=== PATIENT | male | born 1945 | race Two or more races ===

== ENCOUNTER → 2021-02-04 | Emergency (ER) | payer MEDICARE, MEDICAID ==
[~2021-02-04] VITALS: Ht 177.8 cm; Wt 74.0 kg
[~2021-02-04] MED LIST: AMOX1TAB61 PO; AMOXICILLIN/CLAV 500-125MG TABLET PO SCH; DIVA500T17 PO; DIVALPROEX 500 MG TAB.ER.24H PO SCH; FERR324T5 PO; FERROUS SULFATE 325 MG TABLET PO SCH; GLIP5TAB10 PO; IPRATROPIUM 0.5 MG/2.5 ML INHA NPPB SCH; LEVO88TA4 PO; LEVOTHYROXINE 88 MCG TABLET PO SCH; METF500T17 PO; NITR100C PO; NITROFURANTOIN (MACROBID) 100 MG CAPSULE PO SCH; NITROFURANTOIN 50 MG CAPSULE PO SCH; OMEP-110 PO; OMEPRAZOLE 20 MG CAPSULE.DR PO SCH; RISP0.5T62 PO; RISPERIDONE 0.5 MG TABLET PO SCH; SERT-331 PO; SERTRALINE 50MG TABLET PO SCH; TAMS-11 PO; TAMSULOSIN 0.4 MG CAP.ER.24H ONE; TAMSULOSIN 0.4 MG CAP.ER.24H PO SCH; TIOT18CA INH; metFORMIN 500 MG TABLET PO SCH
--- NOTE | 2021-02-04 20:34 | NUR ---
THIS IS A 75M BIB EMS FROM [facility] FOR EVAL. PER EMS REPORT PT BECAME AGGRESSIVE THIS AM AND WAS SENT TO [facility] FOR EVAL. PT RETURNED TO [facility] AND THREW HIS DINNER TRAY AND BECAME AGGRESSIVE WITH GLOBAL RISK MANAGEMENT DIRECTOR, PER TEMPLATE CUTTER JOSE PT TRANSFERED AT REQUEST OF PRIMARY CARE PROVIDER FOR FURTHER EVAL. PT ARRIVES CALM COOPERATIVE NADN, NO COMPLAINTS AT THIS TIME
--- NOTE | 2021-02-04 20:45 | NUR ---
SUGAR TO BEDSIDE FOR EVAL AND POC
[2021-02-04 21:29] LABS: BASOPHILS % (AUTO) 0 % (0-1); EOSINOPHILS % (AUTO) 3 % (1-7); LYMPHOCYTES % (AUTO) 17 % (22-44); MEAN CORPUSCULAR HEMOGLOBIN 29.6 pg (27.5-34.5); MEAN CORPUSCULAR HGB CONC 34.1 g/dL (33.2-36.2); MEAN PLATELET VOLUME 6.7 fL (7.4-10.4); MONOCYTES % (AUTO) 13 % (2-9); NEUTROPHILS % (AUTO) 67 % (42-75); PLATELET COUNT 322 x10^3/uL (130-400); RED BLOOD COUNT 4.62 x10^6/uL (4.38-5.82); RED CELL DISTRIBUTION WIDTH 17.7 % (9.4-14.8)
[2021-02-04 21:38] LABS: ALBUMIN 3.1 g/dL (3.4-5.0); ANION GAP 5 mmol/L (5-15); CALCIUM 8.6 mg/dL (8.5-10.1); CHLORIDE 101 mmol/L (98-107)
[2021-02-04 21:40] LABS: SALICYLATE LEVEL < 1.7 mg/dL (2.8-20.0)
[2021-02-04 21:49] LABS: ALANINE AMINOTRANSFERASE 14 U/L (12-78); ALKALINE PHOSPHATASE 37 U/L (45-117); BILIRUBIN,TOTAL 0.2 mg/dL (0.2-1.0); CREATININE 0.75 mg/dL (0.7-1.3); TOTAL PROTEIN 6.9 g/dL (6.4-8.2)
--- NOTE | 2021-02-04 22:37 | NUR ---
PT RESTING ON GURNEY NADN RESP EVEN AND UNLABORED NO NEEDS AT THIS TIME PT AWARE OF NEED FOR URINE SAMPLE
--- NOTE | 2021-02-05 | NUR ---
PT TO CT
[2021-02-05 00:47] LABS: MICROSCOPIC INDICATED
[2021-02-05 00:51] LABS: AMPHETAMINE SCREEN, URINE Negative (Negative); BARBITURATE SCREEN, URINE Negative (Negative); BENZODIAZEPINE SCREEN, URINE Negative (Negative); CANNABINOID SCREEN, URINE Negative (Negative); COCAINE SCREEN, URINE Negative (Negative); METHADONE SCREEN, URINE Negative (Negative); OPIATE SCREEN, URINE Negative (Negative)
--- NOTE | 2021-02-05 01:11 | NUR ---
REPORT RECEIVED FROM PRIOR RN. PT RESTING ON HOSPITAL BED RESP EVEN UNLABORED, NADN, SIDERAILS UP X2, AND CALL LIGHT WITHIN REACH.
--- NOTE | 2021-02-05 01:32 | NUR ---
CALLED [facility] TO LET THEM KNOW THIS PT WHICH IS THEIRS IS MEDICALLY CLEARED AND IS IN NEED TO RETURN TO THE FACILITY SINCE HE HAS DEMENTIA. PARRISH RN, STATED TO THIS NURSE THAT THEY ARE NOT ALLOWED TO TAKE HIM BACK. WHEN ASKED WHY, THE RN SAID THAT IT IS BECAUSE HE HAS BEHAVIORAL PROBLEMS. WHEN ASKED IF THIS WAS THE INCIDENT WHERE THE PT THREW HIS DINNER TRAY ON THE FLOOR THE RN SAID YES. AND THAT HE'S COMBATIVE. THE PT HAS A DIAGNOSIS OF DEMENTIA AND IS THE REASON HE IS AT THIS FACILITY. WICKER WORKER NOTIFIED OF [facility]'S REFUSAL TO TAKE THE PT BACK. AND PA NOTIFIED FOR FURTHER INSTRUCTION ON PTS DISPOSITION.
--- NOTE | 2021-02-05 03:11 | NUR ---
PT SLEEPING, NO ACUTE DISTRESS AT THIS TIME. PT ON CR MONITOR. REMAINS ON ER OBSERVATION STATUS UNTIL MORNING WHEN THE AGRICULTURAL ENGINEERING TECHNICIANS ARRIVES TO ASSES THE DISPOSITION OF THE PTS STATUS, [facility] HAS REFUSED TO TAKE THIS PT BACK TO THEIR FACILITY WHERE THE PT WAS ADMITTED FOR DEMENTIA, AND MEMORY CARE.
--- NOTE | 2021-02-05 03:37 | NUR ---
TASK RN: PT RESTING ON MINNIE MIJARES, RESP EVEN UNLABORED, NO NEEDS AT THIS TIME.
--- NOTE | 2021-02-05 05:17 | NUR ---
PT RESTING COMFORTABLY IN BED. PT REMAINS ON CR MONITOR, AND IN NO ACUTE DISTRESS.
--- NOTE | 2021-02-05 05:37 | NUR ---
PT AWAKE AND CALM, AND CONVERSING WITH RN. PT ASKED FOR SOME JUICE BUT NOT COLD, WARM, AND PROVIDED WITH CRANBERRY JUICE. PTS LINEN CHANGED, AND PT DIAPER CHANGED WELL. PT CLEANED UP, WITH FRESH LINEN, AND SAYS HE FEELS BETTER. NO ACUTE DISTRESS AT THIS TIME, PT REMAINS RESTING IN BED ON CR MONITOR. MD ADVISED OF LOW BP WHILE PT SLEEPS.
--- NOTE | 2021-02-05 07:12 | NUR ---
report from amirah mcdermott. called [facility] twice to try to do med rec. as
--- NOTE | 2021-02-05 07:41 | NUR ---
called mult times to speak w nurse. pt [facility] 09/22 est [phone] or [phone]. as
--- NOTE | 2021-02-05 08:07 | NUR ---
PER RN AT [facility], PT TO GO TO BEHAVIORAL HEALTH. NOTIFIED. TO ORDER HOME MEDS.
--- NOTE | 2021-02-05 08:09 | NUR ---
CALLED FOR HOSPITAL BED.
--- NOTE | 2021-02-05 09:24 | NUR ---
PT MOVED TO HOSPITAL BED.
--- NOTE | 2021-02-05 09:34 | NUR ---
REQUESTED MEDS FROM PHARM.
--- NOTE | 2021-02-05 09:34 | NUR ---
DAUGHTER ALFONZO NINO: [phone]. UPDATED.
--- NOTE | 2021-02-05 10:20 | NUR ---
CALLED PHARMACY AGAIN TO REQUEST MEDS.
[2021-02-05 10:59] VITALS: BP 93/45
--- NOTE | 2021-02-05 10:59 | NUR ---
repositioned. meds per mar. reoriented. as
--- NOTE | 2021-02-05 11:59 | NUR ---
Pt needs rapid covid test for [facility]
--- NOTE | 2021-02-05 12:47 | NUR ---
BREAK RN: PT UPRIGHT ON HOSPITAL BED, CALM & COOPERATIVE, RESPONDS APPROP TO STAFF, NAD, MEAL TRAY GIVEN- NO OTHER NEEDS AT THIS TIME.
--- NOTE | 2021-02-05 13:30 | NUR ---
REPORT TO FRANKIE KAMINSKI ON U.
== END | disposition admitted as inpatient to this hospital (09) ==
LOC: ED 23:50 → INTOOBSV 02-05 01:52 → UNDOADMOB 02-05 01:52 → EDIP 02-05 01:52
DX: G30.1 Alzheimer's disease with late onset (principal)
CPT/HCPCS: 36415; 70450; 71045; 80053; 80164; 80299; 80307; 80320; 80329; 81001; 84443; 85025; 87426; 99285; G0480

== ENCOUNTER 2021-02-05 12:47 | Inpatient (IN) | payer MEDICARE, MEDICAID ==
[~2021-02-05] VITALS: Ht 177.8 cm; Wt 72.2 kg
[~2021-02-05 12:47] MED LIST changes: -AMOXICILLIN/CLAV 500-125MG TABLET PO SCH; -DIVALPROEX 500 MG TAB.ER.24H PO SCH; -FERROUS SULFATE 325 MG TABLET PO SCH; -IPRATROPIUM 0.5 MG/2.5 ML INHA NPPB SCH; -LEVOTHYROXINE 88 MCG TABLET PO SCH; -NITROFURANTOIN (MACROBID) 100 MG CAPSULE PO SCH; -NITROFURANTOIN 50 MG CAPSULE PO SCH; -OMEPRAZOLE 20 MG CAPSULE.DR PO SCH; -RISPERIDONE 0.5 MG TABLET PO SCH; -SERTRALINE 50MG TABLET PO SCH; -TAMSULOSIN 0.4 MG CAP.ER.24H ONE; -TAMSULOSIN 0.4 MG CAP.ER.24H PO SCH; -metFORMIN 500 MG TABLET PO SCH
[2021-02-05] MEDS ORDERED: ONDANSETRON ODT 4 MG PO PRN (13:00)
[2021-02-05] MEDS ORDERED: BISACODYL 10 MG SUPP PR PRN (13:00)
[2021-02-05] MEDS ORDERED: PLEASE ENTER HEIGHT AND WEIGHT MC SCH ×2 (14:00→14:30)
[2021-02-05 16:07] VITALS: BP 126/75
[2021-02-05 19:29] VITALS: BP 130/78
[2021-02-05] MEDS: DIVALPROEX 500 MG TAB.ER.24H PO SCH (20:50)
[2021-02-05] MEDS: AMOXICILLIN/CLAV 500-125MG TABLET PO SCH (20:50)
[2021-02-05] MEDS: metFORMIN 500 MG TABLET PO SCH (20:50)
[2021-02-05] MEDS: RISPERIDONE 0.5 MG TABLET PO SCH (20:50)
[2021-02-06] MEDS: LEVOTHYROXINE 88 MCG TABLET PO SCH (06:35)
[2021-02-06 06:43] LABS: CHOL/HDL RATIO 3.6; FREE T4 (FREE THYROXINE) 1.35 ng/dL (0.76-1.46); LDL/HDL RATIO 2.1 (0.5-3.0)
[2021-02-06 07:43] VITALS: BP 106/69
[2021-02-06] MEDS: RISPERIDONE 0.5 MG TABLET PO SCH ×2 (09:48→21:41)
[2021-02-06] MEDS: metFORMIN 500 MG TABLET PO SCH ×2 (09:48→21:40)
[2021-02-06] MEDS: SERTRALINE 50MG TABLET PO SCH (09:48)
[2021-02-06] MEDS: TAMSULOSIN 0.4 MG CAP.ER.24H PO SCH (09:48)
[2021-02-06] MEDS: AMOXICILLIN/CLAV 500-125MG TABLET PO SCH (09:48)
[2021-02-06] MEDS: TIOTROPIUM BROMIDE 18 MCG/INH INH SCH (17:48)
[2021-02-06 18:27] VITALS: BP 117/74
[2021-02-06] MEDS: DIVALPROEX 500 MG TAB.ER.24H PO SCH (21:00)
[2021-02-07] MEDS: LEVOTHYROXINE 88 MCG TABLET PO SCH (06:24)
[2021-02-07 07:24] VITALS: BP 117/74
[2021-02-07] MEDS: SERTRALINE 50MG TABLET PO SCH (09:04)
[2021-02-07] MEDS: metFORMIN 500 MG TABLET PO SCH ×2 (09:04→21:23)
[2021-02-07] MEDS: TAMSULOSIN 0.4 MG CAP.ER.24H PO SCH (09:04)
[2021-02-07] MEDS: RISPERIDONE 0.5 MG TABLET PO SCH ×2 (09:05→21:23)
[2021-02-07] MEDS: TIOTROPIUM BROMIDE 18 MCG/INH INH SCH (09:20)
[2021-02-07 19:42] VITALS: BP 136/83
[2021-02-07] MEDS: CARBAMAZEPINE 200 MG TABLET PO SCH (21:23)
[2021-02-08] MEDS: LEVOTHYROXINE 88 MCG TABLET PO SCH (05:56)
[2021-02-08 07:19] VITALS: BP 135/73
[2021-02-08] MEDS: TIOTROPIUM BROMIDE 18 MCG/INH INH SCH (09:42)
[2021-02-08] MEDS: SERTRALINE 50MG TABLET PO SCH (09:47)
[2021-02-08] MEDS: TAMSULOSIN 0.4 MG CAP.ER.24H PO SCH (09:49)
[2021-02-08] MEDS: metFORMIN 500 MG TABLET PO SCH ×2 (09:49→20:42)
[2021-02-08] MEDS: RISPERIDONE 0.5 MG TABLET PO SCH ×2 (09:50→20:42)
[2021-02-08] MEDS: CARBAMAZEPINE 200 MG TABLET PO SCH ×2 (09:50→20:42)
[2021-02-08 19:51] VITALS: BP 132/76
[2021-02-09] VITALS (7 sets, daily range): BP systolic 95–154; BP diastolic 59–81
[2021-02-09] MEDS: LEVOTHYROXINE 88 MCG TABLET PO SCH (05:50)
[2021-02-09] MEDS: TAMSULOSIN 0.4 MG CAP.ER.24H PO SCH (08:49)
[2021-02-09] MEDS: metFORMIN 500 MG TABLET PO SCH ×2 (08:49→17:37)
[2021-02-09] MEDS: CARBAMAZEPINE 200 MG TABLET PO SCH ×2 (08:49→20:15)
[2021-02-09] MEDS: RISPERIDONE 0.5 MG TABLET PO SCH ×2 (08:49→20:15)
[2021-02-09] MEDS: SERTRALINE 50MG TABLET PO SCH (08:58)
[2021-02-09] MEDS: TIOTROPIUM BROMIDE 18 MCG/INH INH SCH (08:58)
[2021-02-10] MEDS: LEVOTHYROXINE 88 MCG TABLET PO SCH (05:58)
[2021-02-10 07:27] VITALS: BP 121/69
[2021-02-10] MEDS: TAMSULOSIN 0.4 MG CAP.ER.24H PO SCH (09:23)
[2021-02-10] MEDS: RISPERIDONE 0.5 MG TABLET PO SCH ×2 (09:24→20:56)
[2021-02-10] MEDS: SERTRALINE 50MG TABLET PO SCH (09:24)
[2021-02-10] MEDS: CARBAMAZEPINE 200 MG TABLET PO SCH ×2 (09:25→20:56)
[2021-02-10] MEDS: metFORMIN 500 MG TABLET PO SCH ×2 (09:27→16:51)
[2021-02-10] MEDS: TIOTROPIUM BROMIDE 18 MCG/INH INH SCH (09:28)
[2021-02-10 19:22] VITALS: BP 145/86
[2021-02-10] MEDS: DOCUSATE 100 MG CAPSULE PO PRN (20:56)
[2021-02-11] MEDS: LEVOTHYROXINE 88 MCG TABLET PO SCH (06:00)
[2021-02-11 07:32] VITALS: BP 149/77
[2021-02-11] MEDS: metFORMIN 500 MG TABLET PO SCH ×2 (08:18→16:05)
[2021-02-11] MEDS: SERTRALINE 50MG TABLET PO SCH (08:59)
[2021-02-11] MEDS: TAMSULOSIN 0.4 MG CAP.ER.24H PO SCH (08:59)
[2021-02-11] MEDS: RISPERIDONE 0.5 MG TABLET PO SCH ×2 (08:59→20:30)
[2021-02-11] MEDS: CARBAMAZEPINE 200 MG TABLET PO SCH ×2 (08:59→20:30)
[2021-02-11] MEDS: TIOTROPIUM BROMIDE 18 MCG/INH INH SCH (09:00)
[2021-02-11 18:39] VITALS: BP 108/68
[2021-02-12] MEDS: LEVOTHYROXINE 88 MCG TABLET PO SCH (06:15)
[2021-02-12 07:47] VITALS: BP 120/69
[2021-02-12] MEDS: TAMSULOSIN 0.4 MG CAP.ER.24H PO SCH (08:50)
[2021-02-12] MEDS: metFORMIN 500 MG TABLET PO SCH ×2 (08:51→17:35)
[2021-02-12] MEDS: SERTRALINE 50MG TABLET PO SCH (08:52)
[2021-02-12] MEDS: RISPERIDONE 0.5 MG TABLET PO SCH ×2 (08:52→20:28)
[2021-02-12] MEDS: CARBAMAZEPINE 200 MG TABLET PO SCH ×2 (09:00→20:28)
[2021-02-12] MEDS: TIOTROPIUM BROMIDE 18 MCG/INH INH SCH (11:10)
[2021-02-12 19:19] VITALS: BP 111/68
[2021-02-13] MEDS: LEVOTHYROXINE 88 MCG TABLET PO SCH (05:59)
[2021-02-13 07:38] VITALS: BP 137/65
[2021-02-13] MEDS: TAMSULOSIN 0.4 MG CAP.ER.24H PO SCH (08:53)
[2021-02-13] MEDS: SERTRALINE 50MG TABLET PO SCH (08:53)
[2021-02-13] MEDS: RISPERIDONE 0.5 MG TABLET PO SCH ×2 (08:53→20:22)
[2021-02-13] MEDS: metFORMIN 500 MG TABLET PO SCH ×2 (08:53→16:45)
[2021-02-13] MEDS: TIOTROPIUM BROMIDE 18 MCG/INH INH SCH (09:02)
[2021-02-13] MEDS: CARBAMAZEPINE 200 MG TABLET PO SCH ×2 (09:02→20:22)
[2021-02-13] MEDS: NYSTATIN TOPICAL POWDER 15GM TP PRN ×2 (15:21→20:28)
[2021-02-13 19:32] VITALS: BP 145/73
[2021-02-14] MEDS: LEVOTHYROXINE 88 MCG TABLET PO SCH (06:00)
[2021-02-14] MEDS: NYSTATIN TOPICAL POWDER 15GM TP PRN ×3 (06:00→22:26)
[2021-02-14 07:25] VITALS: BP 113/63
[2021-02-14] MEDS: SERTRALINE 50MG TABLET PO SCH (08:48)
[2021-02-14] MEDS: RISPERIDONE 0.5 MG TABLET PO SCH ×2 (08:48→20:12)
[2021-02-14] MEDS: TAMSULOSIN 0.4 MG CAP.ER.24H PO SCH (08:48)
[2021-02-14] MEDS: metFORMIN 500 MG TABLET PO SCH ×2 (08:49→17:03)
[2021-02-14] MEDS: CARBAMAZEPINE 200 MG TABLET PO SCH ×2 (08:49→20:12)
[2021-02-14] MEDS: TIOTROPIUM BROMIDE 18 MCG/INH INH SCH (12:56)
[2021-02-14 19:24] VITALS: BP 148/74
[2021-02-15] MEDS: LEVOTHYROXINE 88 MCG TABLET PO SCH (06:10)
[2021-02-15 07:28] VITALS: BP 101/59
[2021-02-15] MEDS: metFORMIN 500 MG TABLET PO SCH ×2 (08:52→17:45)
[2021-02-15] MEDS: SERTRALINE 50MG TABLET PO SCH (09:21)
[2021-02-15] MEDS: RISPERIDONE 0.5 MG TABLET PO SCH ×2 (09:22→20:30)
[2021-02-15] MEDS: TAMSULOSIN 0.4 MG CAP.ER.24H PO SCH (09:22)
[2021-02-15] MEDS: CARBAMAZEPINE 200 MG TABLET PO SCH ×2 (09:22→20:30)
[2021-02-15] MEDS: TIOTROPIUM BROMIDE 18 MCG/INH INH SCH (09:23)
[2021-02-15 19:37] VITALS: BP 126/70
[2021-02-16] MEDS: LEVOTHYROXINE 88 MCG TABLET PO SCH (05:59)
[2021-02-16 07:53] VITALS: BP 149/77
[2021-02-16] MEDS: metFORMIN 500 MG TABLET PO SCH ×2 (08:50→18:01)
[2021-02-16] MEDS: TAMSULOSIN 0.4 MG CAP.ER.24H PO SCH (09:55)
[2021-02-16] MEDS: SERTRALINE 50MG TABLET PO SCH (09:55)
[2021-02-16] MEDS: RISPERIDONE 0.5 MG TABLET PO SCH ×2 (09:55→20:40)
[2021-02-16] MEDS: CARBAMAZEPINE 200 MG TABLET PO SCH ×2 (09:55→20:40)
[2021-02-16] MEDS: TIOTROPIUM BROMIDE 18 MCG/INH INH SCH (09:57)
[2021-02-16 20:07] VITALS: BP 122/73
[2021-02-17] MEDS: LEVOTHYROXINE 88 MCG TABLET PO SCH (06:18)
[2021-02-17 07:25] VITALS: BP 138/71
[2021-02-17] MEDS: TAMSULOSIN 0.4 MG CAP.ER.24H PO SCH (08:49)
[2021-02-17] MEDS: CARBAMAZEPINE 200 MG TABLET PO SCH ×2 (08:49→22:00)
[2021-02-17] MEDS: SERTRALINE 50MG TABLET PO SCH (08:49)
[2021-02-17] MEDS: metFORMIN 500 MG TABLET PO SCH ×2 (08:50→17:00)
[2021-02-17] MEDS: RISPERIDONE 0.5 MG TABLET PO SCH ×2 (08:50→22:00)
[2021-02-17] MEDS: TIOTROPIUM BROMIDE 18 MCG/INH INH SCH (09:48)
[2021-02-17] MEDS: POLYETHYLENE GLYCOL 17 GM PACKET PO PRN (16:02)
[2021-02-17 20:55] VITALS: BP 145/75
[2021-02-17] MEDS: ACETAMINOPHEN 325 MG TABLET PO PRN (23:13)
[2021-02-18] MEDS: LEVOTHYROXINE 88 MCG TABLET PO SCH (06:03)
[2021-02-18 07:45] VITALS: BP 112/66
[2021-02-18] MEDS: RISPERIDONE 0.5 MG TABLET PO SCH ×2 (08:41→20:33)
[2021-02-18] MEDS: CARBAMAZEPINE 200 MG TABLET PO SCH ×2 (08:41→20:33)
[2021-02-18] MEDS: SERTRALINE 50MG TABLET PO SCH (08:41)
[2021-02-18] MEDS: TAMSULOSIN 0.4 MG CAP.ER.24H PO SCH (08:42)
[2021-02-18] MEDS: metFORMIN 500 MG TABLET PO SCH ×2 (08:42→17:20)
[2021-02-18] MEDS: NYSTATIN TOPICAL POWDER 15GM TP PRN (08:45)
[2021-02-18] MEDS: TIOTROPIUM BROMIDE 18 MCG/INH INH SCH (09:01)
[2021-02-18 19:27] VITALS: BP 132/72
[2021-02-19] MEDS: LEVOTHYROXINE 88 MCG TABLET PO SCH (05:49)
[2021-02-19 07:21] VITALS: BP 128/70
[2021-02-19] MEDS: CARBAMAZEPINE 200 MG TABLET PO SCH ×2 (08:14→20:21)
[2021-02-19] MEDS: TAMSULOSIN 0.4 MG CAP.ER.24H PO SCH (08:15)
[2021-02-19] MEDS: RISPERIDONE 0.5 MG TABLET PO SCH ×2 (08:15→20:21)
[2021-02-19] MEDS: SERTRALINE 50MG TABLET PO SCH (08:15)
[2021-02-19] MEDS: metFORMIN 500 MG TABLET PO SCH ×2 (08:15→16:33)
[2021-02-19] MEDS: TIOTROPIUM BROMIDE 18 MCG/INH INH SCH (09:00)
[2021-02-19 18:34] VITALS: BP 121/71
[2021-02-19] MEDS: ACETAMINOPHEN 325 MG TABLET PO PRN (20:20)
[2021-02-20] MEDS: LEVOTHYROXINE 88 MCG TABLET PO SCH (06:37)
[2021-02-20 07:32] VITALS: BP 175/74
[2021-02-20] MEDS: TAMSULOSIN 0.4 MG CAP.ER.24H PO SCH (08:51)
[2021-02-20] MEDS: metFORMIN 500 MG TABLET PO SCH ×2 (08:51→17:56)
[2021-02-20] MEDS: CARBAMAZEPINE 200 MG TABLET PO SCH ×2 (08:52→20:53)
[2021-02-20] MEDS: RISPERIDONE 0.5 MG TABLET PO SCH ×2 (08:52→20:53)
[2021-02-20] MEDS: SERTRALINE 50MG TABLET PO SCH (08:52)
[2021-02-20] MEDS: TIOTROPIUM BROMIDE 18 MCG/INH INH SCH (13:13)
[2021-02-20 19:38] VITALS: BP 138/70
[2021-02-21] MEDS: LEVOTHYROXINE 88 MCG TABLET PO SCH (06:17)
[2021-02-21 07:34] VITALS: BP 147/81
[2021-02-21] MEDS: CARBAMAZEPINE 200 MG TABLET PO SCH ×2 (08:43→20:54)
[2021-02-21] MEDS: RISPERIDONE 0.5 MG TABLET PO SCH ×2 (08:43→20:54)
[2021-02-21] MEDS: SERTRALINE 50MG TABLET PO SCH (08:44)
[2021-02-21] MEDS: metFORMIN 500 MG TABLET PO SCH ×2 (08:44→16:39)
[2021-02-21] MEDS: TAMSULOSIN 0.4 MG CAP.ER.24H PO SCH (08:45)
[2021-02-21] MEDS: IPRATROPIUM 0.5 MG/2.5 ML INHA NPPB SCH ×3 (09:00→18:35)
[2021-02-21] MEDS: TIOTROPIUM BROMIDE 18 MCG/INH INH SCH (10:19)
[2021-02-21 19:35] VITALS: BP 140/76
[2021-02-22] MEDS: NYSTATIN TOPICAL POWDER 15GM TP PRN (05:10)
[2021-02-22] MEDS: LEVOTHYROXINE 88 MCG TABLET PO SCH (05:26)
[2021-02-22 07:46] VITALS: BP 139/75
[2021-02-22] MEDS: metFORMIN 500 MG TABLET PO SCH ×2 (07:54→17:33)
[2021-02-22] MEDS: TAMSULOSIN 0.4 MG CAP.ER.24H PO SCH (07:54)
[2021-02-22] MEDS: RISPERIDONE 0.5 MG TABLET PO SCH ×2 (07:54→20:44)
[2021-02-22] MEDS: SERTRALINE 50MG TABLET PO SCH (07:54)
[2021-02-22] MEDS: CARBAMAZEPINE 200 MG TABLET PO SCH ×2 (07:54→20:44)
[2021-02-22] MEDS ORDERED: TIOTROPIUM BROMIDE 18 MCG/INH INH SCH (09:00)
[2021-02-22] MEDS: TIOTROPIUM BROMIDE 18 MCG/INH INH SCH (15:30)
[2021-02-22 19:50] VITALS: BP 97/55
[2021-02-23] MEDS: LEVOTHYROXINE 88 MCG TABLET PO SCH (06:24)
[2021-02-23 07:34] VITALS: BP 111/64
[2021-02-23] MEDS: TIOTROPIUM BROMIDE 18 MCG/INH INH SCH (09:00)
[2021-02-23] MEDS: metFORMIN 500 MG TABLET PO SCH ×2 (09:19→16:23)
[2021-02-23] MEDS: CARBAMAZEPINE 200 MG TABLET PO SCH ×2 (09:19→20:23)
[2021-02-23] MEDS: ACETAMINOPHEN 325 MG TABLET PO PRN (09:19)
[2021-02-23] MEDS: TAMSULOSIN 0.4 MG CAP.ER.24H PO SCH (09:19)
[2021-02-23] MEDS: SERTRALINE 50MG TABLET PO SCH (09:19)
[2021-02-23] MEDS: RISPERIDONE 0.5 MG TABLET PO SCH ×2 (09:20→20:23)
[2021-02-23 19:36] VITALS: BP 116/79
[2021-02-24] MEDS: LEVOTHYROXINE 88 MCG TABLET PO SCH (06:00)
[2021-02-24 07:17] VITALS: BP 148/73
[2021-02-24] MEDS: metFORMIN 500 MG TABLET PO SCH ×2 (08:37→17:12)
[2021-02-24] MEDS: RISPERIDONE 0.5 MG TABLET PO SCH ×2 (08:38→21:35)
[2021-02-24] MEDS: TAMSULOSIN 0.4 MG CAP.ER.24H PO SCH (08:38)
[2021-02-24] MEDS: SERTRALINE 50MG TABLET PO SCH (08:38)
[2021-02-24] MEDS: CARBAMAZEPINE 200 MG TABLET PO SCH ×2 (08:38→21:35)
[2021-02-24] MEDS: TIOTROPIUM BROMIDE 18 MCG/INH INH SCH (08:40)
[2021-02-24] MEDS: DOCUSATE 100 MG CAPSULE PO PRN (08:43)
[2021-02-24] MEDS: ACETAMINOPHEN 325 MG TABLET PO PRN (11:03)
[2021-02-24] MEDS ORDERED: GLIP5TAB10 PO (11:53)
[2021-02-24] MEDS ORDERED: SERT50TA28 PO (11:53)
[2021-02-24] MEDS ORDERED: RISP0.5T62 PO (11:53)
[2021-02-24] MEDS ORDERED: TAMS-11 PO (11:53)
[2021-02-24] MEDS ORDERED: LEVO88TA2 PO (11:53)
[2021-02-24] MEDS ORDERED: TIOT18CA INH (11:53)
[2021-02-24] MEDS ORDERED: CARB200T4 PO (11:53)
[2021-02-24] MEDS ORDERED: METF500T17 PO (11:53)
[2021-02-24 19:37] VITALS: BP 142/68
[2021-02-25] MEDS: LEVOTHYROXINE 88 MCG TABLET PO SCH (06:06)
[2021-02-25 07:08] VITALS: BP 135/71
[2021-02-25] MEDS: SERTRALINE 50MG TABLET PO SCH (08:37)
[2021-02-25] MEDS: RISPERIDONE 0.5 MG TABLET PO SCH ×2 (08:37→21:08)
[2021-02-25] MEDS: CARBAMAZEPINE 200 MG TABLET PO SCH ×2 (08:37→21:08)
[2021-02-25] MEDS: TAMSULOSIN 0.4 MG CAP.ER.24H PO SCH (08:37)
[2021-02-25] MEDS: metFORMIN 500 MG TABLET PO SCH ×2 (08:38→16:22)
[2021-02-25] MEDS: TIOTROPIUM BROMIDE 18 MCG/INH INH SCH (09:00)
[2021-02-25] MEDS: POLYETHYLENE GLYCOL 17 GM PACKET PO PRN (16:22)
[2021-02-25 19:41] VITALS: BP 106/67
[2021-02-25] MEDS: DOCUSATE 100 MG CAPSULE PO PRN (21:08)
[2021-02-26] MEDS: LEVOTHYROXINE 88 MCG TABLET PO SCH (05:30)
[2021-02-26 07:22] VITALS: BP 114/69
[2021-02-26] MEDS: metFORMIN 500 MG TABLET PO SCH ×2 (10:08→16:32)
[2021-02-26] MEDS: TAMSULOSIN 0.4 MG CAP.ER.24H PO SCH (10:09)
[2021-02-26] MEDS: CARBAMAZEPINE 200 MG TABLET PO SCH ×2 (10:09→20:32)
[2021-02-26] MEDS: RISPERIDONE 0.5 MG TABLET PO SCH ×2 (10:09→20:32)
[2021-02-26] MEDS: SERTRALINE 50MG TABLET PO SCH (10:09)
[2021-02-26] MEDS: TIOTROPIUM BROMIDE 18 MCG/INH INH SCH (10:11)
[2021-02-26 19:21] VITALS: BP 142/69
[2021-02-27] MEDS: LEVOTHYROXINE 88 MCG TABLET PO SCH (05:54)
[2021-02-27 07:37] VITALS: BP 117/69
[2021-02-27] MEDS: metFORMIN 500 MG TABLET PO SCH (08:46)
[2021-02-27] MEDS: SERTRALINE 50MG TABLET PO SCH (08:48)
[2021-02-27] MEDS: RISPERIDONE 0.5 MG TABLET PO SCH (08:48)
[2021-02-27] MEDS: TAMSULOSIN 0.4 MG CAP.ER.24H PO SCH (08:48)
[2021-02-27] MEDS: CARBAMAZEPINE 200 MG TABLET PO SCH (08:49)
[2021-02-27] MEDS: TIOTROPIUM BROMIDE 18 MCG/INH INH SCH (08:51)
== END 2021-02-27 11:15 | DRG 57 ==
LOC: 3E 13:51
PROVIDERS: ADMIT Psychiatry & Neurology Psychosomatic Medicine; ATTEND Psychiatry & Neurology Psychosomatic Medicine
DX: G30.8 Other Alzheimer's disease (principal); F02.81 Dementia in other diseases classified elsewhere, unspecified severity, with behavioral disturbance; F20.0 Paranoid schizophrenia; N39.0 Urinary tract infection, site not specified; F10.21 Alcohol dependence, in remission; E03.9 Hypothyroidism, unspecified; E11.9 Type 2 diabetes mellitus without complications; K21.9 Gastro-esophageal reflux disease without esophagitis; N40.0 Benign prostatic hyperplasia without lower urinary tract symptoms; Z79.84 Long term (current) use of oral hypoglycemic drugs; Z79.899 Other long term (current) drug therapy; Z91.81 History of falling; F43.10 Post-traumatic stress disorder, unspecified; Z87.891 Personal history of nicotine dependence
CPT/HCPCS: 36415; 71045; 80061; 84439; 84443; 93005; 94640; Q0162